=== PATIENT | female | born 1965 | race Caucasian/White ===

== ENCOUNTER 2021-07-07 11:55 | Outpatient (CLI) | payer BC, SELFPAY ==
--- NOTE | 2021-07-07 12:37 | ECG_ITS ---
Measurements Intervals [place] Rate: 88 P: 61 [place]: 154 QRS: 40 QRSD: 72 T: 39 QT: 337 QTc: 409 Interpretive Statements SINUS RHYTHM NO PREVIOUS ECG AVAILABLE FOR COMPARISON Electronically Signed On 07-07-2021 15:59:58 SENIOR ADVOCATE by Neptali Matias M.D.
[2021-07-07 12:53] LABS: Basophils Absolute Auto 0.1 K/mm3 (0.0-0.1); Basophils Percent Auto 0.8 % (0.2-1.2); Eosinophils Percent Auto 0.6 % (0-4.4); Hematocrit 43.1 % (37.0-47.0); Hemoglobin 14.1 g/dL (12.0-15.0); Immature Granulocyte Absolute 0.01 K/mm3 (0.00-0.031); Immature Granulocyte Percent A 0.2 % (0-0.5); Lymphocytes Absolute Auto 1.98 K/mm3 (0.9-3.2); Lymphocytes Percent Auto 31.5 % (18.3-44.2); Mean Corpuscular HGB Conc 32.7 g/dl (32-36); Mean Corpuscular Hemoglobin 32.3 pg (26-34); Mean Corpuscular Volume 98.6 fl (80-100); Mean Platelet Volume 9.4 fl (7.4-10.4); Monocytes Absolute Auto 0.3 K/mm3 (0.1-0.6); Monocytes Percent Auto 4.5 % (2.6-8.5); Neutrophils Absolute Auto 3.9 K/mm3 (1.3-6.7); Neutrophils Percent Auto 62.4 % (45.5-73.1); Platelet Count Result 339 k/mm3 (150-375); Red Blood Count 4.37 M/mm3 (4.2-5.4); Red Cell Distribution Width 12.4 % (11.5-14.5); White Blood Count 6.3 K/mm3 (4.5-10.0)
[2021-07-10 14:48] LABS: LH 45.1 mIU/mL (***)
== END 2021-07-07 11:56 | disposition home or self-care (01) ==
PROVIDERS: Visit Provider Obstetrics & Gynecology
DX: R00.0 Tachycardia, unspecified (principal); F41.9 Anxiety disorder, unspecified; R23.2 Flushing; I10 Essential (primary) hypertension
CPT/HCPCS: 36415; 83002; 84443; 85025; 93005

== ENCOUNTER 2021-07-11 10:35 | Outpatient (CLI) | payer BC, SELFPAY | END 2021-07-11 10:36 | disposition home or self-care (01) | DX: F41.9 Anxiety disorder, unspecified (principal); R00.0 Tachycardia, unspecified; R23.2 Flushing; I10 Essential (primary) hypertension | CPT/HCPCS: 82384; 83835 ==